=== PATIENT | male | born 1965 | race American Indian/Alaskan Native ===

== ENCOUNTER 2016-12-12 15:43 | Emergency (ER) | payer OTHER ==
[2016-12-12 18:07] LABS: Urine Drugs of Abuse Note Disclamer
[2016-12-12 18:11] LABS: Basophils % (Auto) 0.7 % (0.0-1.8); Eosinophils % (Auto) 3.3 % (0.0-4.3); Hematocrit 38.4 % (35.5-45.6); Hemoglobin 12.3 gm/dl (11.8-15.2); Mean Corpuscular HGB Conc 32 % (32-34); Mean Corpuscular Hemoglobin 28 pg (28-32); Mean Corpuscular Volume 87 fl (84-94); Platelet Count 175 K/mm3 (140-440); Red Blood Count 4.44 M/mm3 (3.65-5.03); Red Cell Distribution Width 13.3 % (13.2-15.2); White Blood Count 3.9 K/mm3 (4.5-11.0)
[2016-12-12 18:16] LABS: Anion Gap 17 mmol/L; BUN/Creatinine Ratio 16.25; Blood Urea Nitrogen 13 mg/dL (9-20); Calcium 9.5 mg/dL (8.4-10.2); Carbon Dioxide 27 mmol/L (22-30); Chloride 101.2 mmol/L (98-107); Glucose 91 mg/dL (75-100); Sodium 141 mmol/L (137-145)
[2016-12-12 18:27] LABS: Bilirubin,Urine NEG (Negative); Blood,Urine NEG (Negative); Ketones,Urine NEG (Negative); Leukocyte Esterase,Urine NEG (Negative); Mucus,Urine FEW /HPF; Nitrite,Urine NEG (Negative); Protein,Urine <15 mg/dL mg/dL (Negative); RBC,Urine < 1.0 /HPF (0.0-6.0); WBC,Urine < 1.0 /HPF (0.0-6.0)
--- NOTE | 2016-12-13 01:27 | Emergency Department Report ---
HPI - General Chief Complaint: Psych Time Seen by Provider: 12/13/16 00:41 - HPI HPI: This is a 51-year-old Afro-Ivorian male presents to the emergency department from his assisted at [facility] with the need for a mental health evaluation. There is a letter attached from the assisted, and a nurse who sees him there, who says that the patient has been displaying abnormal Havey or including insomnia, carrying around his bowel movements/feces in his hands, randomly turning on stoves, constant pacing, and combativeness towards staff. I spoke to the patient about why he is here the patient says that he is here because he is "trying to pay some bills." He has a long delusional speech about people coming into the room and trying to collect money from him. When asked what type of facility he is at, looking for him to respond with a hospital , he once again starts talking as if this is a financial institution. The patient does have a history of bipolar disorder, tardive dyskinesia. His parents are bedside and say that he is usually more alert and oriented when he is stabilized on his medications. He was just at [facility] and they say he was doing fine upon discharge. ED Past Medical Hx - Past Medical History Hx Hypertension: Yes Hx Diabetes: Yes Hx Pulmonary Embolism: No Hx Renal Disease: Yes (CKD) Hx Arthritis: Yes (gout) Hx Psychiatric Treatment: Yes Hx Dementia: Yes (vascular) Additional medical history: neuroleptic induced tardive dyskinesia. bipolar, hypomanic episode. INSOMNIA - Surgical History Past Surgical History?: No - Social History Smoking Status: Never Smoker Substance Use Type: None - Medications Home Medications: Home Medications Medication Instructions Recorded Confirmed Last Taken Type Aspirin EC [Aspirin Enteric Coated 81 mg PO QDAY 08/20/16 08/20/16 Unknown History TAB] AtorvaSTATin [Lipitor] 40 mg PO QDAY 08/20/16 08/20/16 Unknown History Benztropine [Cogentin] 0.5 mg PO BID 08/20/16 08/20/16 Unknown History Donepezil [Aricept] 10 mg PO QDAY 08/20/16 08/20/16 Unknown History Haloperidol [Haldol] 5 mg PO BID 08/20/16 08/20/16 Unknown History Mirtazapine [Remeron] 15 mg PO QHS 08/20/16 08/20/16 Unknown History metFORMIN [Glucophage] 500 mg PO BID 08/20/16 08/20/16 Unknown History ED Review of Systems ROS: Stated complaint: MH EVAL Other details as noted in HPI Comment: Unobtainable due to pts medical conditions Physical Exam - Physical Exam Vital Signs: Vital Signs 12/12/16 12/13/16 17:14 00:49 Temperature 97.4 F L Pulse Rate 63 Respiratory 20 14 Rate Blood Pressure 112/78 O2 Sat by Pulse 100 98 Oximetry Physical Exam: GENERAL: The patient is well-developed well-nourished. HEENT: Normocephalic. Atraumatic. Extraocular motions are intact. Patient has moist mucous membranes. Pupils equal reactive to light bilaterally. NECK: Supple. Trachea is midline. CHEST/LUNGS: Clear to auscultation. There is no respiratory distress noted. HEART/CARDIOVASCULAR: Regular. There is no tachycardia. There is no gallop rub or murmur. ABDOMEN: Abdomen is soft, nontender. Patient has normal bowel sounds. There is no abdominal distention. SKIN: Skin is warm and dry. NEURO: The patient is awake, alert. AAO [address] or time. The patient is cooperative. The patient has no focal neurologic deficits. MUSCULOSKELETAL: There is no tenderness or deformity. There is no limitation range of motion. There is no evidence of acute injury. PSYCH: Patient displays some delusions ED Course Vital Signs 12/12/16 12/13/16 17:14 00:49 Temperature 97.4 F L Pulse Rate 63 Respiratory 20 14 Rate Blood Pressure 112/78 O2 Sat by Pulse 100 98 Oximetry ED Medical Decision Making - Lab Data Result diagrams: 12/12/16 17:31 12/12/16 17:31 - Medical Decision Making 51-year-old male with history of bipolar disorder presents from his assisted with the complaint of some breakdown in his psychiatric behavior. Patient was seen carrying around his feces. He has had insomnia. He has been spraying some agitation and/or combative to staff. Here in the emergency department the patient displays some delusions and keeps talking about people coming into the room and talking to him about bills and financial transactions. Patient's labs are unremarkable. Vital signs stable throughout his ED course. I do believe that the patient appears to be a candidate to be made a 1013 for inpatient psychiatric admission. He is medically cleared and the crisis therapist as been contacted to assist. - Differential Diagnosis schizophrenia, bipolar disorder, schizoaffective, substance abuse Critical Care Time: No Critical care attestation.: If time is entered above; I have spent that time in minutes in the direct care of this critically ill patient, excluding procedure time. ED Disposition Clinical Impression: Delusions Psychosis Qualifiers: Psychosis type: unspecified psychosis type Qualified Code(s): F29 - Unspecified psychosis not due to a substance or known physiological condition Bipolar disorder Qualifiers: Active/Remission status: remission status unspecified Qualified Code(s): F31.9 - Bipolar disorder, unspecified Disposition: DC/TX PSY HOSP/PSY UNIT Is pt being admited?: No Condition: Stable Referrals: PRIMARY CARE [Primary Care Provider] - 3-5 Days Time of Disposition: 03:01
--- NOTE | 2016-12-13 11:35 | Consultation ---
History of Present Illness - Reason for Consult Consult date: 12/13/16 Reason for consult: Mental Health Evaluation Requesting physician: GILBERT HADLEY - Chief Complaint Chief complaint: "I know my name" - History of Present Psychiatric Illness This is a 51-year-old Afro-Armenian male presents to the emergency department from his [facility] at [facility] with the need for a mental health evaluation. Today patient is delusional with a tangential thought process during his assessment. I asked what brought him to [facility], "My bills my bills." Patient could not elaborate about what he meant by "my bills my bills." During the assessment patient tried to get up and wander off, but he had to be redirected. Patient was delayed with his responses during the assessment. Patient could not tell me where he resides or his current location. He did deny SI/HI's and AVH at this time. He could not confirm or deny that he was walking around the [facility] (mcfp) with his feces in his hand. also, I asked patient did he have a problem going to sleep, he replied, "no." After my assessment patient was observed leaving his assigned room and had to be redirected. Medications and Allergies Allergies Allergy/AdvReac Type Severity Reaction Status Date / Time No Known Allergies Allergy Unverified 08/20/16 09:27 Home Medications Medication Instructions Recorded Confirmed Last Taken Type Aspirin EC [Aspirin Enteric Coated 81 mg PO QDAY 08/20/16 08/20/16 Unknown History TAB] AtorvaSTATin [Lipitor] 40 mg PO QDAY 08/20/16 08/20/16 Unknown History Benztropine [Cogentin] 0.5 mg PO BID 08/20/16 08/20/16 Unknown History Donepezil [Aricept] 10 mg PO QDAY 08/20/16 08/20/16 Unknown History Haloperidol [Haldol] 5 mg PO BID 08/20/16 08/20/16 Unknown History Mirtazapine [Remeron] 15 mg PO QHS 08/20/16 08/20/16 Unknown History metFORMIN [Glucophage] 500 mg PO BID 08/20/16 08/20/16 Unknown History Past psychiatric history - Past Medical History Past Medical History: diabetes, other (Gout, CKD) Past Surgical History: No surgical history - past Psychiatric treatment and history Psych: Bipolar, Schizophrenia psychiatric treatment history: Per patient multiple inpatient services. Reside at [facility]. - Social History Social history: other (Unable to obtain) Mental Status Exam - Vital signs Last Vital Signs Temp 98.6 F 12/13/16 07:25 Pulse 62 12/13/16 07:25 Resp 18 12/13/16 07:25 BP 115/76 12/13/16 07:25 Pulse Ox 97 12/13/16 07:25 - Exam Narrative exam: ROS, (+) disorganized, (+) delusional Orientation: person Affect: flat Mood: congruent with affect Thought content: delusions Thought Process: Tangential Perceptions: other ("I don't know") Speech: slow Concentration: focused Motor activity: other (ambulatory) Level of consciousness: confused Sleep Symptoms: None (unable to obtain) Interaction: cooperative Results Result Diagrams: 12/12/16 17:31 12/12/16 17:31 Abnormal lab results 12/12/16 Range/Units 17:31 WBC 3.9 L (4.5-11.0) K/mm3 [place] % (Auto) 11.2 H (0.0-7.3) % All other labs normal. Assessment and Plan Assessment and plan: Impression: This is a 51-year-old Afro-Armenian male presents to the emergency department from his [facility] at [place] with the need for a mental health evaluation. Patient is disorganized and delusional. Presently, patient is unable to take of himself. He denies SI/HI or AVH's at this time. Recommendation/Plan: Continue 1013 with placement to inpatient psy services. Start Ativan 1 mg IM TID, Haldol 5mg PO HS, and Cogentin 0.5 mg PO HS. AIMS assessment completed with patient with a score of 0. Will follow-up daily.
[2016-12-13] MEDS: ATIVAN IM SCH ×3 (12:53→23:18)
[2016-12-13] MEDS ORDERED: HALDOL PO SCH (22:00)
[2016-12-13] MEDS ORDERED: COGENTIN PO SCH (22:00)
[2016-12-14] MEDS: ATIVAN IM SCH (09:49)
[2016-12-14 09:52] VITALS: BP 118/71
== END 2016-12-14 11:16 ==
LOC: EEVIPCON 15:43 → ED 15:43
DX: F22 Delusional disorders (principal); F29 Unspecified psychosis not due to a substance or known physiological condition; F31.9 Bipolar disorder, unspecified; E11.9 Type 2 diabetes mellitus without complications; I12.9 Hypertensive chronic kidney disease with stage 1 through stage 4 chronic kidney disease, or unspecified chronic kidney disease; N18.9 Chronic kidney disease, unspecified; M06.9 Rheumatoid arthritis, unspecified; F03.90 Unspecified dementia, unspecified severity, without behavioral disturbance, psychotic disturbance, mood disturbance, and anxiety; Z79.82 Long term (current) use of aspirin
CPT/HCPCS: 36415; 80048; 80307; 81001; 85025; 96372; 99285; G0480; J2060; 80320